=== PATIENT | male | born 1985 | race African-American/Black ===

== ENCOUNTER → 2016-08-06 23:05 | Emergency (ER) | payer BC ==
[~2016-08-06 23:05] MED LIST: ACYCLOVIR PO; CIPRO PO; KETOPROFEN PO; LAMICTAL PO; PHENERGAN25 M1 PO; PRILOSEC PO; SEROQUEL PO
== END | disposition home or self-care (01) ==
LOC: CFTX 23:05
DX: B34.9 Viral infection, unspecified (principal); J06.9 Acute upper respiratory infection, unspecified; F17.210 Nicotine dependence, cigarettes, uncomplicated; Z88.8 Allergy status to other drugs, medicaments and biological substances; Z79.899 Other long term (current) drug therapy
CPT/HCPCS: 99282

== ENCOUNTER 2016-08-29 22:18 | Emergency (ER) | payer BC | END 2016-08-29 22:24 | disposition home or self-care (01) | LOC: CFTX 22:18 | DX: S05.02XA Injury of conjunctiva and corneal abrasion without foreign body, left eye, initial encounter (principal); J45.909 Unspecified asthma, uncomplicated; F17.210 Nicotine dependence, cigarettes, uncomplicated; Z88.8 Allergy status to other drugs, medicaments and biological substances; Z79.899 Other long term (current) drug therapy; X58.XXXA Exposure to other specified factors, initial encounter; Y92.89 Other specified places as the place of occurrence of the external cause | CPT/HCPCS: 99283 ==